=== PATIENT | female | born 1980 | race Caucasian/White ===

== ENCOUNTER → 2021-06-13 | Outpatient (CLI) | payer OTHER ==
[2021-06-13 08:49] LABS: HEMOGLOBIN 14.1 gm/dl (12.3-15.3); RED BLOOD COUNT 5.04 M/UL (4.00-5.10); WHITE BLOOD COUNT 10.3 K/UL (4.5-11.0)
[2021-06-13 09:16] LABS: BUN/CREATININE RATIO 14 (0-10)
[2021-06-14 07:10] LABS: VITAMIN D, 25-HYDROXY 6.7 ng/mL (30.0-100.0)
[2021-06-14 09:10] LABS: FSH 17.5 mIU/mL (.); LUTEINIZING HORMONE(LH) 63.4 mIU/mL (.)
== END ==
LOC: LAB 08:20
PROVIDERS: Internal Medicine
DX: I10 Essential (primary) hypertension (principal); R07.9 Chest pain, unspecified; Z13.1 Encounter for screening for diabetes mellitus; Z13.220 Encounter for screening for lipoid disorders; R63.5 Abnormal weight gain
CPT/HCPCS: 36415; 80053; 80061; 82670; 83001; 83002; 83036; 84439; 84443; 85025